=== PATIENT | female | born 1980 | race African-American/Black ===

== ENCOUNTER 2018-09-29 08:10 | Day surgery (SDC) | payer BC ==
[~2018-09-29] VITALS: Ht 172.7 cm; Wt 61.0 kg
[2018-09-29 09:03] VITALS: Ht 172.7 cm; Wt 61.0 kg
[2018-09-29] MEDS ORDERED: LIDOCAINE 4% SOLUTION 50 ML BTL ONE (09:35)
[2018-09-29 09:45] VITALS: BP 125/58; PULSE 95; RESP 20
[2018-09-29 09:58] VITALS: BP 124/55; PULSE 94; RESP 16
[2018-09-29 10:09] VITALS: BP 103/55; PULSE 83; RESP 16
[2018-09-29 10:20] VITALS: BP 96/51; PULSE 80; RESP 15
[2018-09-29] MEDS ORDERED: ONDANSETRON (ODT) 4 MG TAB ODT STA (10:55)
[2018-09-29] MEDS ORDERED: MIDAZOLAM 1 MG/ML 2 ML INJ ONE ×3 (11:46→11:47)
[2018-09-29] MEDS ORDERED: FENTAnyl 50 MCG/ML VIAL ONE (11:46)
== END 2018-09-29 13:18 | disposition home or self-care (01) ==
LOC: GIL 08:10
PROVIDERS: ATTEND Internal Medicine Gastroenterology
DX: K29.50 Unspecified chronic gastritis without bleeding (principal); K20.8 Other esophagitis
CPT/HCPCS: 43239; 84703; 88305; 88312; J2250; J3010; Z7610